=== PATIENT | female | born 1995 | race Caucasian/White ===

== ENCOUNTER 2019-11-18 07:30 | Observation (INO) | payer MEDICAID ==
[~2019-11-18] VITALS: Ht 165.1 cm; Wt 71.7 kg
[2019-11-18] MEDS ORDERED: LR 1,000 ML IV SCH (07:37)
[2019-11-18] MEDS ORDERED: NALOXONE HCL 0.4 MG/ML AMP (NARCAN) IVP PRN (08:00)
[2019-11-18] MEDS ORDERED: MORPHINE SULFATE 10 MG/ML VIAL IVP PRN (08:00)
[2019-11-18 08:22] LABS: BASOPHILS # (AUTO) 0.1 K/uL (0.0-0.2); BASOPHILS % (AUTO) 0.8 % (0.0-2.0); EOSINOPHILS # (AUTO) 0.1 K/uL (0.0-0.4); EOSINOPHILS % (AUTO) 1.2 % (0.0-4.0); HEMATOCRIT 30.7 % (36-48); HEMOGLOBIN 10.6 g/dL (12.0-16.0); LYMPHOCYTES # (AUTO) 1.6 K/uL (1.0-5.5); LYMPHOCYTES % (AUTO) 15.1 % (20.5-51.5); MEAN CORPUSCULAR HEMOGLOBIN 31 pg (27-31); MEAN CORPUSCULAR HGB CONC 35 % (32-36); MEAN CORPUSCULAR VOLUME 91 fL (79.0-98.0); MONOCYTES # (AUTO) 0.5 K/uL (0.0-1.0); MONOCYTES % (AUTO) 4.6 % (1.7-9.3); NEUTROPHILS # (AUTO) 8.2 K/uL (1.8-7.7); NEUTROPHILS % (AUTO) 78.3 % (40.0-70.0); PLATELET COUNT (AUTO) 198 K/uL (130-430); RED BLOOD CELL COUNT(AUTO) 3.38 MIL/uL (4.2-6.2); RED CELL DISTRIBUTION WIDTH 13.8 % (9.0-15.0); WHITE BLOOD COUNT (AUTO) 10.5 K/uL (4.8-10.8)
[2019-11-18 08:42] LABS: CALCIUM 8.7 mg/dL (8.4-11.0); CREATININE 0.56 mg/dL (0.55-1.30); POTASSIUM 3.7 mmol/L (3.5-5.1)
[2019-11-18 08:47] LABS: ALBUMIN 2.5 g/dL (3.4-4.8); TOTAL BILIRUBIN 0.5 mg/dL (0.0-1.0)
[2019-11-18] MEDS ORDERED: TERBUTALINE SULFATE 1 MG/ML VIAL SUBCUT PRN (09:45)
[2019-11-18 10:32] LABS: BILIRUBIN,URINE NEGATIVE (NEGATIVE); BLOOD, URINE NEGATIVE (NEGATIVE); CLARITY/URINE CLOUDY (CLEAR); COLOR,URINE YELLOW (YELLOW); GLUCOSE,URINE NEGATIVE (NEGATIVE); KETONES,URINE TRACE (NEGATIVE); LEUKOCYTE ESTERASE ,URINE TRACE (NEGATIVE); NITRITE, URINE NEGATIVE (NEGATIVE); PROTEIN URINE NEGATIVE (NEGATIVE); UROBILINOGEN,URINE 0.2 (0.2-1.0)
[2019-11-18 10:47] LABS: RBC,URINE 0-3 /HPF (0-3)
[2019-11-18 10:48] LABS: BACTERIA,URINE None Seen /HPF (None Seen); TRICHOMONAS,URINE None Seen /HPF (None Seen); YEAST,URINE None Seen /HPF (None Seen)
[2019-11-18] MEDS ORDERED: TERBUTALINE SULFATE 1 MG/ML VIAL SUBCUT ONE (11:44)
== END 2019-11-18 11:45 | disposition home or self-care (01) ==
LOC: SPU 07:30
PROVIDERS: ADMIT Obstetrics & Gynecology; ATTEND Obstetrics & Gynecology
DX: O26.892 Other specified pregnancy related conditions, second trimester (principal); R10.9 Unspecified abdominal pain; M54.9 Dorsalgia, unspecified; Z3A.23 23 weeks gestation of pregnancy
CPT/HCPCS: 36415; 76700; 76805; 80053; 81000; 82150; 83690; 85025; 96372; 96374; G0378; J2270; J3105

== ENCOUNTER 2020-02-19 10:25 | Observation (INO) | payer MEDICAID ==
[~2020-02-19] VITALS: Ht 167.6 cm; Wt 79.4 kg
== END 2020-02-19 12:10 | disposition home or self-care (01) ==
LOC: SPU 10:25
PROVIDERS: ADMIT Obstetrics & Gynecology; ATTEND Obstetrics & Gynecology
DX: O36.8130 Decreased fetal movements, third trimester, not applicable or unspecified (principal); O62.9 Abnormality of forces of labor, unspecified; Z3A.38 38 weeks gestation of pregnancy
CPT/HCPCS: 59025; 81002-TC; G0378

== ENCOUNTER 2020-03-01 19:43 | Observation (INO) | payer MEDICAID ==
[~2020-03-01] VITALS: Ht 165.1 cm; Wt 79.4 kg
== END 2020-03-01 20:11 | disposition home or self-care (01) ==
LOC: SPU 19:43 → INTOOBSV 19:43
PROVIDERS: ADMIT Obstetrics & Gynecology; ATTEND Obstetrics & Gynecology
DX: O62.9 Abnormality of forces of labor, unspecified (principal); Z3A.39 39 weeks gestation of pregnancy
CPT/HCPCS: 59025; 81002-TC; G0378

== ENCOUNTER 2020-03-02 20:06 | Inpatient (IN) | payer MEDICAID, SELFPAY ==
[~2020-03-02] VITALS: Ht 165.1 cm; Wt 80.7 kg
[2020-03-02] MEDS ORDERED: LR 1,000 ML IV SCH (20:45)
[2020-03-02] MEDS ORDERED: OXYTOCIN/0.9 % SODIUM CHLORIDE 1,000 ML IV SCH (20:45)
[2020-03-02] MEDS ORDERED: TERBUTALINE SULFATE 1 MG/ML VIAL SUBCUT ONE (20:45)
[2020-03-02] MEDS ORDERED: LR 1,000 ML IV ONE (20:45)
[2020-03-02] MEDS ORDERED: MORPHINE SULFATE 10 MG/ML VIAL IVP PRN (21:00)
[2020-03-02] MEDS ORDERED: DINOPROSTONE 10 MG SUPP VG ONE (21:00)
[2020-03-02] MEDS ORDERED: NALOXONE HCL 0.4 MG/ML AMP (NARCAN) IVP PRN (21:00)
[2020-03-02 21:33] LABS: BASOPHILS % (AUTO) 0.7 % (0.0-2.0); EOSINOPHILS # (AUTO) 0.1 K/uL (0.0-0.4); HEMATOCRIT 31.4 % (36-48); HEMOGLOBIN 10.7 g/dL (12.0-16.0); LYMPHOCYTES # (AUTO) 2.3 K/uL (1.0-5.5); LYMPHOCYTES % (AUTO) 36.7 % (20.5-51.5); MEAN CORPUSCULAR HEMOGLOBIN 30 pg (27-31); MEAN CORPUSCULAR HGB CONC 34 % (32-36); MEAN CORPUSCULAR VOLUME 89 fL (79.0-98.0); MONOCYTES # (AUTO) 0.3 K/uL (0.0-1.0); MONOCYTES % (AUTO) 5.3 % (1.7-9.3); NEUTROPHILS # (AUTO) 3.5 K/uL (1.8-7.7); NEUTROPHILS % (AUTO) 56.3 % (40.0-70.0); PLATELET COUNT (AUTO) 123 K/uL (130-430); RED BLOOD CELL COUNT(AUTO) 3.54 MIL/uL (4.2-6.2); RED CELL DISTRIBUTION WIDTH 13.9 % (9.0-15.0); WHITE BLOOD COUNT (AUTO) 6.2 K/uL (4.8-10.8)
[2020-03-02] MEDS ORDERED: ONDANSETRON HCL 4 MG/2 ML VIAL IVP PRN (23:15)
[2020-03-03 01:19] VITALS: BP_SYST 137
[2020-03-03] MEDS ORDERED: ROPIVACAINE HCL/PF 0.2% 200 ML ONE (04:07)
[2020-03-03] MEDS ORDERED: fentaNYL CITRATE/PF 100 MCG/2 ML AMP ONE (04:07)
[2020-03-03] MEDS ORDERED: ePHEDrine sulfate 50 MG/ML VIAL IVP PRN (05:30)
[2020-03-03] MEDS ORDERED: LR 500 ML IV ONE (05:30)
[2020-03-03] MEDS ORDERED: FENT2mCg/mL-ROPIVA0.2%/NS EPID 200 ML EP SCH (05:30)
[2020-03-03] MEDS ORDERED: fentaNYL CITRATE/PF 100 MCG/2 ML AMP EP ONE (05:30)
[2020-03-03] MEDS ORDERED: AMPICILLIN SODIUM 1 GM in NS 50 ML IV SCH (06:00)
[2020-03-03] MEDS ORDERED: AMPICILLIN SODIUM 2 GM in NS 100 ML IV ONE (06:00)
[2020-03-03] MEDS ORDERED: AMPICILLIN SODIUM 2 GM VIAL ONE (06:21)
[2020-03-03 06:53] LABS: BASOPHILS # (AUTO) 0.1 K/uL (0.0-0.2); BASOPHILS % (AUTO) 0.9 % (0.0-2.0); EOSINOPHILS % (AUTO) 0.5 % (0.0-4.0); HEMATOCRIT 35.3 % (36-48); HEMOGLOBIN 11.8 g/dL (12.0-16.0); LYMPHOCYTES # (AUTO) 2.1 K/uL (1.0-5.5); LYMPHOCYTES % (AUTO) 28.8 % (20.5-51.5); MEAN CORPUSCULAR HEMOGLOBIN 30 pg (27-31); MEAN CORPUSCULAR HGB CONC 33 % (32-36); MEAN CORPUSCULAR VOLUME 89 fL (79.0-98.0); MONOCYTES # (AUTO) 0.3 K/uL (0.0-1.0); MONOCYTES % (AUTO) 4.4 % (1.7-9.3); NEUTROPHILS # (AUTO) 4.7 K/uL (1.8-7.7); NEUTROPHILS % (AUTO) 65.4 % (40.0-70.0); PLATELET COUNT (AUTO) 140 K/uL (130-430); RED BLOOD CELL COUNT(AUTO) 3.95 MIL/uL (4.2-6.2); RED CELL DISTRIBUTION WIDTH 14.1 % (9.0-15.0); WHITE BLOOD COUNT (AUTO) 7.2 K/uL (4.8-10.8)
[2020-03-03 07:31] LABS: CALCIUM 8.8 mg/dL (8.4-11.0); POTASSIUM 5.2 mmol/L (3.5-5.1)
[2020-03-03 07:32] LABS: ALBUMIN 2.4 g/dL (3.4-4.8); CREATININE 0.76 mg/dL (0.55-1.30); TOTAL BILIRUBIN 0.3 mg/dL (0.0-1.0); URIC ACID 6.3 mg/dL (2.4-7.0)
[2020-03-03] MEDS ORDERED: OXYTOCIN/0.9 % SODIUM CHLORIDE 1,000 ML IV SCH (09:15)
[2020-03-03] MEDS ORDERED: TEMAZEPAM 15 MG CAPSULE PO PRN (09:15)
[2020-03-03] MEDS ORDERED: DERMOPLAST SPRAY TP PRN (09:15)
[2020-03-03] MEDS ORDERED: OXYTOCIN/0.9 % SODIUM CHLORIDE 1,000 ML IV ONE (09:15)
[2020-03-03] MEDS ORDERED: MEASLES,MUMPS&RUBELLA VACC/PF 12500 UNIT/0.5 ML VIAL SUBQ PRN (09:15)
[2020-03-03] MEDS ORDERED: SENNOSIDES/DOCUSATE SODIUM 1 TAB TABLET(SENOKOT-S) PO PRN (09:15)
[2020-03-03] MEDS ORDERED: LANOLIN 7 GM OINT. TP PRN (09:15)
[2020-03-03] MEDS ORDERED: ANUSOL 1 EA SUPP.RECT (PREPARATION H) RC PRN (09:15)
[2020-03-03] MEDS ORDERED: WITCH HAZEL LEAF 1 MED.PAD MED.PAD TP PRN (09:15)
[2020-03-03] MEDS ORDERED: RHO(D) IMMUNE GLOBULIN/MALTOSE 1500 UNITS/1.3 ML (WINHRO) IM PRN (09:15)
[2020-03-03] MEDS ORDERED: HYDROCORTISONE 0.5%, 28.35 GM TOPICAL CREAM TP PRN (09:15)
[2020-03-03] MEDS ORDERED: DIPH-TET-PERTUS Vaccine 0.5 ML VIAL (ADACEL) I.M. PRN (09:15)
[2020-03-03] MEDS: DOCUSATE SODIUM 100 MG CAPSULE PO PRN (12:11)
[2020-03-03] MEDS: IBUPROFEN 600 MG TABLET PO SCH ×3 (12:11→23:46)
[2020-03-03] MEDS ORDERED: OXYCODONE/ACETAMINOPHEN 5-325 TABLET PO PRN (18:00)
[2020-03-03] MEDS: OXYCODONE/ACETAMINOPHEN 5-325 TABLET PO PRN (18:04)
[2020-03-04] MEDS: DOCUSATE SODIUM 100 MG CAPSULE PO PRN (01:33)
[2020-03-04] MEDS: OXYCODONE/ACETAMINOPHEN 5-325 TABLET PO PRN (01:33)
[2020-03-04] MEDS: IBUPROFEN 600 MG TABLET PO SCH ×2 (06:10→12:09)
[2020-03-04 08:56] LABS: HEMATOCRIT 30.3 % (36-48)
[2020-03-06 19:09] LABS: FTA-Ab (T PALLIDUM) Non Reactive (Non Reactive)
== END 2020-03-04 15:23 | disposition home or self-care (01) | DRG 560 ==
LOC: SPU 20:06
PROVIDERS: ADMIT Obstetrics & Gynecology; ATTEND Obstetrics & Gynecology
PROC: 10E0XZZ Delivery of Products of Conception, External Approach (ICD-10-PCS; principal; 2020-03-03)
PROC: 3E0R3BZ Introduction of Anesthetic Agent into Spinal Canal, Percutaneous Approach (ICD-10-PCS; 2020-03-03)
PROC: 00HU33Z Insertion of Infusion Device into Spinal Canal, Percutaneous Approach (ICD-10-PCS; 2020-03-03)
DX: O80 Encounter for full-term uncomplicated delivery (principal); Z37.0 Single live birth; Z3A.39 39 weeks gestation of pregnancy; Z20.828 Contact with and (suspected) exposure to other viral communicable diseases; D64.89 Other specified anemias
CPT/HCPCS: 36415; 80053; 81002-TC; 84550-TC; 85018-TC; 85025; 85384-TC; 86592; 86780; 86886; 86900; 86901; 87081; 88305; 94760; J0290; J2590; J3010

== ENCOUNTER 2021-08-25 23:50 | Emergency (ER) | payer MEDICAID, OTHER ==
[~2021-08-25] VITALS: Ht 165.1 cm; Wt 68.0 kg
[2021-08-26 00:08] VITALS: BP_SYST 132
[2021-08-26 01:07] LABS: EOSINOPHILS # (AUTO) 0.1 K/uL (0.0-0.4); WHITE BLOOD COUNT (AUTO) 9.1 K/uL (4.8-10.8)
[2021-08-26 01:12] LABS: BASOPHILS # (AUTO) 0.1 K/uL (0.0-0.2); BASOPHILS % (AUTO) 0.7 % (0.0-2.0); HEMATOCRIT 29.5 % (36-48); HEMOGLOBIN 9.4 g/dL (12.0-16.0); LYMPHOCYTES # (AUTO) 3.1 K/uL (1.0-5.5); LYMPHOCYTES % (AUTO) 34.1 % (20.5-51.5); MEAN CORPUSCULAR HEMOGLOBIN 22 pg (27-31); MEAN CORPUSCULAR HGB CONC 32 % (32-36); MEAN CORPUSCULAR VOLUME 68 fL (79.0-98.0); MONOCYTES # (AUTO) 0.6 K/uL (0.0-1.0); MONOCYTES % (AUTO) 7.1 % (1.7-9.3); NEUTROPHILS # (AUTO) 5.2 K/uL (1.8-7.7); PLATELET COUNT (AUTO) 252 K/uL (130-430); RED BLOOD CELL COUNT(AUTO) 4.32 MIL/uL (4.2-6.2); RED CELL DISTRIBUTION WIDTH 20.6 % (9.0-15.0)
[2021-08-26 01:13] LABS: CALCIUM 8.8 mg/dL (8.4-11.0); CREATININE 0.62 mg/dL (0.55-1.30); POTASSIUM 3.7 mmol/L (3.5-5.1)
[2021-08-26 01:48] LABS: ALBUMIN 3.7 g/dL (3.4-4.8); TOTAL BILIRUBIN 0.3 mg/dL (0.0-1.0)
[2021-08-26 02:11] LABS: BILIRUBIN,URINE NEGATIVE (NEGATIVE); BLOOD, URINE NEGATIVE (NEGATIVE); CLARITY/URINE CLEAR (CLEAR); COLOR,URINE YELLOW (YELLOW); GLUCOSE,URINE NEGATIVE (NEGATIVE); KETONES,URINE 1+ (NEGATIVE); LEUKOCYTE ESTERASE ,URINE 1+ (NEGATIVE); NITRITE, URINE NEGATIVE (NEGATIVE); PROTEIN URINE NEGATIVE (NEGATIVE); UROBILINOGEN,URINE 0.2 (0.2-1.0)
[2021-08-26] MEDS ORDERED: ACET-2634 PO (02:12)
[2021-08-26 02:19] LABS: BACTERIA,URINE MODERATE /HPF (None Seen); RBC,URINE 0-3 /HPF (0-3); WBC,URINE 0-3 /HPF (0-3)
[2021-08-26 02:20] LABS: YEAST,URINE Rare /HPF (None Seen)
[2021-08-26] MEDS ORDERED: CEPH-548 PO (02:24)
[2021-08-26] MEDS ORDERED: cephALEXin 500 MG CAPSULE PO ONE (02:30)
[2021-08-26] MEDS ORDERED: FLUCONAZOLE 200 MG TABLET (DIFLUCAN) PO ONE (02:30)
[2021-08-26] MEDS ORDERED: FLUCONAZOLE 200 MG TABLET (DIFLUCAN) ONE (02:32)
[2021-08-26 03:34] LABS: NEUTROPHILS % (AUTO) 57.1 % (40.0-70.0)
== END 2021-08-26 02:48 | disposition home or self-care (01) ==
LOC: SED 23:50
DX: O26.891 Other specified pregnancy related conditions, first trimester (principal); R10.32 Left lower quadrant pain; O99.011 Anemia complicating pregnancy, first trimester; Z3A.09 9 weeks gestation of pregnancy
CPT/HCPCS: 36415; 76801; 80053; 81000; 81025; 83690; 84702; 85025; 86900; 86901; 87086; 99284

== ENCOUNTER 2022-03-20 05:55 | Inpatient (IN) | payer OTHER ==
[~2022-03-20] VITALS: Ht 165.1 cm; Wt 70.3 kg
[~2022-03-20 05:55] MED LIST: ACET-2634 PO; CEPH-548 PO
[2022-03-20] MEDS ORDERED: OXYTOCIN/0.9 % SODIUM CHLORIDE 1,000 ML IV ONE ×2 (06:36→07:00)
[2022-03-20] MEDS ORDERED: NALOXONE HCL 0.4 MG/ML AMP (NARCAN) ONE (06:41)
[2022-03-20] MEDS ORDERED: LIDOCAINE PF 1% 30ML(POUR BTL) INJ ONE (06:41)
[2022-03-20] MEDS ORDERED: LIGHT MINERAL OIL 10 ML VIAL MC ONE (06:41)
[2022-03-20] MEDS ORDERED: LR 1,000 ML IV SCH (06:45)
[2022-03-20] MEDS ORDERED: NALBUPHINE HCL 10 MG/ML AMP IVP PRN (06:45)
[2022-03-20] MEDS ORDERED: OXYTOCIN/0.9 % SODIUM CHLORIDE 1,000 ML IV SCH ×2 (06:45→07:00)
[2022-03-20] MEDS ORDERED: TERBUTALINE SULFATE 1 MG/ML VIAL SUBCUT ONE (06:45)
[2022-03-20] MEDS ORDERED: TEMAZEPAM 15 MG CAPSULE PO PRN (07:00)
[2022-03-20] MEDS ORDERED: HYDROCORTISONE 0.5% CREAM 28.4 GM CREAM.GM. TP PRN (07:00)
[2022-03-20] MEDS ORDERED: RHO(D) IMMUNE GLOBULIN/MALTOSE 1500 UNITS/1.3 ML (WINHRO) IM PRN (07:00)
[2022-03-20] MEDS ORDERED: LANOLIN 7 GM OINT. TP PRN (07:00)
[2022-03-20] MEDS ORDERED: ANUSOL 1 EA SUPP.RECT (PREPARATION H) RC PRN (07:00)
[2022-03-20] MEDS ORDERED: DIPHTH,PERTUSS(ACELL),TET VAC 0.5 ML VIAL (Tdap) I.M. PRN (07:00)
[2022-03-20] MEDS ORDERED: MEASLES,MUMPS&RUBELLA VACC/PF 12500 UNIT/0.5 ML VIAL SUBQ PRN (07:00)
[2022-03-20] MEDS ORDERED: WITCH HAZEL LEAF 1 MED.PAD MED.PAD TP PRN (07:00)
[2022-03-20] MEDS ORDERED: DERMOPLAST SPRAY TP PRN (07:00)
[2022-03-20 07:14] LABS: BASOPHILS # (AUTO) 0.1 K/uL (0.0-0.2); BASOPHILS % (AUTO) 1.1 % (0.0-2.0); EOSINOPHILS # (AUTO) 0.1 K/uL (0.0-0.4); EOSINOPHILS % (AUTO) 0.7 % (0.0-4.0); HEMATOCRIT 31.7 % (36-48); HEMOGLOBIN 10.6 g/dL (12.0-16.0); LYMPHOCYTES # (AUTO) 2.9 K/uL (1.0-5.5); LYMPHOCYTES % (AUTO) 30.9 % (20.5-51.5); MEAN CORPUSCULAR HEMOGLOBIN 25 pg (27-31); MEAN CORPUSCULAR HGB CONC 33 % (32-36); MEAN CORPUSCULAR VOLUME 76 fL (79.0-98.0); MONOCYTES # (AUTO) 0.7 K/uL (0.0-1.0); MONOCYTES % (AUTO) 7.2 % (1.7-9.3); NEUTROPHILS # (AUTO) 5.7 K/uL (1.8-7.7); NEUTROPHILS % (AUTO) 60.1 % (40.0-70.0); PLATELET COUNT (AUTO) 234 K/uL (130-430); RED CELL DISTRIBUTION WIDTH 16.3 % (9.0-15.0); WHITE BLOOD COUNT (AUTO) 9.5 K/uL (4.8-10.8)
[2022-03-20] MEDS ORDERED: DOCUSATE SODIUM 100 MG CAPSULE PO SCH (09:00)
[2022-03-20] MEDS: IBUPROFEN 600 MG TABLET PO SCH ×3 (11:48→23:58)
[2022-03-20] MEDS: OXYCODONE/ACETAMINOPHEN 5-325 TABLET PO PRN (15:34)
[2022-03-20 20:30] VITALS: BP_SYST 127
[2022-03-20] MEDS ORDERED: SENNOSIDES/DOCUSATE SODIUM 1 TAB TABLET(SENOKOT-S) PO SCH (21:00)
[2022-03-21] MEDS: IBUPROFEN 600 MG TABLET PO SCH ×3 (06:56→18:30)
[2022-03-21 07:41] LABS: HEMATOCRIT 26.6 % (36-48); HEMOGLOBIN 8.8 g/dL (12.0-16.0)
[2022-03-21] MEDS: OXYCODONE/ACETAMINOPHEN 5-325 TABLET PO PRN (08:14)
== END 2022-03-21 20:20 | disposition home or self-care (01) | DRG 560 ==
LOC: SPU 05:55
PROVIDERS: ADMIT Obstetrics & Gynecology; ATTEND Obstetrics & Gynecology
PROC: 10E0XZZ Delivery of Products of Conception, External Approach (ICD-10-PCS; principal; 2022-03-20)
DX: O80 Encounter for full-term uncomplicated delivery (principal); Z37.0 Single live birth; D62 Acute posthemorrhagic anemia; Z20.822 Contact with and (suspected) exposure to COVID-19; Z79.2 Long term (current) use of antibiotics; Z79.899 Other long term (current) drug therapy; Z3A.37 37 weeks gestation of pregnancy
CPT/HCPCS: 36415; 81002; 85018; 85025; 86592; 86886; 86900; 86901; J2001; J2310; J2590